=== PATIENT | female | born 1995 | race Caucasian/White ===

== ENCOUNTER 2016-09-24 03:04 | Inpatient (IN) ==
[2016-09-24] MEDS: LACTATED RINGERS 1,000 ML IV SCH ×2 (03:45→09:46)
[2016-09-24] MEDS ORDERED: BUTORPHANOL 1 MG/ML VIAL IV PRN (04:03)
[2016-09-24] MEDS ORDERED: ONDANSETRON 4 MG/2 ML VIAL IV PRN (04:03)
[2016-09-24] MEDS ORDERED: MEPERIDINE 50 MG/1 ML VIAL IV PRN (04:03)
[2016-09-24] MEDS ORDERED: BUTORPHANOL 2 MG/ML VIAL IV PRN (04:08)
[2016-09-24 04:30] LABS: Basophils # 0.1 10*3/uL (0.0-0.2); Basophils % 0.4 % (0.0-0.8); Eosinophils # 0.1 10*3/uL (0.0-0.87); Eosinophils % 0.4 % (0.00-10.9); Hematocrit 34.8 VOL% (35.7-47.0); Hemoglobin 11.8 GM/DL (12.0-16.0); Immature Granulocytes Absolute 0.32 #; Lymphocytes # 1.9 10*3/uL (1.4-4.0); Lymphocytes % 12.3 % (21.3-54.2); Mean Corpuscular HGB Conc 33.9 GM/DL (32-36); Mean Corpuscular Hemoglobin 32 PG (27-34); Mean Corpuscular Volume 94.8 FL (87-102); Mean Platelet Volume 11.7 FL (9.6-12.0); Monocytes # 0.9 10*3/uL (0.11-0.8); Monocytes % 5.7 % (1.7-12.7); Neutrophils # 12.4 10*3/uL (1.4-7.4); Neutrophils % 79.2 % (38.7-73.9); Platelet Count 130 T/CUMM (130-400); Red Blood Count 3.67 MC/CUMM (3.8-5.5); White Blood Count 15.7 T/CUMM (4-12)
[2016-09-24] MEDS: AMPICILLIN INJ 2,000 MG in SODIUM CHLORIDE 0.9% 100 ML IV SCH ×3 (04:32→18:16)
[2016-09-24 05:06] LABS: Alanine Aminotransferase 15 U/L (13-56); Alkaline Phosphatase 87 U/L (45-117); Aspartate Amino Transferase 11 U/L (0-37); Bilirubin,Total < 0.39 MG/DL (0.2-1.0); Blood Urea Nitrogen 8 MG/DL (7-18); Calcium 9.2 MG/DL (8.5-10.1); Glucose 100 MG/DL (74-106); Osmolality,Calculated 280.1 MOS/KG (273-304); Potassium 4.1 MMOL/L (3.5-5.1); Sodium 142 MMOL/L (136-145); Total Protein 6.4 G/DL (6.4-8.3)
[2016-09-24 05:38] LABS: Apearance,Urine CLEAR (Clear); Bilirubin,Urine Negative (Negative); Blood, Urine Negative (Negative); Glucose,Urine (UA) Negative (Negative); Ketones,Urine Negative (Negative); Nitrite,Urine Negative (Negative); Protein,Urine Negative; RBC,Urine <1 /HPF (0-4); Squamous Epithelial Cell,Urine Occasional /HPF (0-10); Urine Color Colorless (Yellow); Urine Specific Gravity 1.004 (1.001-1.035); Urine Urobilinogen < 2.0 EU/DL (0.2-1.0); WBC,Urine 1 /HPF (0-6)
[2016-09-24 05:43] LABS: Barbiturates Screen,Urine Negative (Negative); Benzodiazepines Screen,Urine Negative (Negative); Cannabinoid Screen,Urine Negative (Negative); Opiate Screen,Urine Negative (Negative); Phencyclidine Screen,Urine Negative (Negative)
--- NOTE | 2016-09-24 12:06 | OB/GYN History & Physical ---
History of Present Illness Chief complaint: contractions History of present illness: Ms. Armendariz is a 20 year old female at 34 weeks and 1 day by estimated due date of 11/04/2016 dated by a 10 week ultrasound who presents with contractions. The patient was here last week complaining of nausea vomiting and contractions and was noted to be 2 cm dilated so she was given steroids for lung maturity at that time. The patient was admitted early this morning and noted to be 3-4 cm and was hugh but her contractions have slowed down with pain medication. The baby has been looking good on the monitor. She denies rupture of membranes. Home Medications Medication Instructions Recorded Confirmed Type Vits #90/Iron Fum/FA 1 each PO BEDTIME 04/06/16 09/24/16 History [ Formula Tablet] Ferrous Sulfate, Dried [Iron] 1 tablet PO DAILY 08/26/16 09/24/16 History NIFEdipine CAP [Procardia] 10 mg PO Q8HR #30 capsule 09/18/16 09/24/16 Rx Allergies Allergy/AdvReac Type Severity Reaction Status Date / Time No Known Allergies Allergy Verified 08/26/16 15:32 Medical,Surgical,& Family Hx - Medical History Cardio: No history of: Hypertension Psychological: History of: ADHD Neurology: No history of: Seizures Endocrine: No history of: Diabetes Mellitus (IDDM), Diabetes Mellitus (NIDDM) Respiratory: History of: Asthma (CHILDHOOD) Renal: History of: Renal Problems Genitourinary: History of: Recurring Urinary Tract Infections Reproductive: History of: Ectopic No history of: Complication Other: History of: Anesthesia Reactions (nausea) - Surgical History Reproductive Surgeries: Surgical HX of;: Dilation and Curettage (08/01/2015), Gynecologic Surgery (ectopic ) Patient denies;: Section - Family History Family History: Reports;: Family Cancer (BROHTER), Family Diabetes (BROTHER), Family Hypertension (MOTHER FATHER BROTHER), Family Stroke (PATERNAL GRANDFATHER ) Denies;: Family Anesthesia Reaction, Family Heart Disease, Family Hematology , Family Psychiatric Problems, Additional Family History - Social History Smoking Status: Never smoker Frequency of Alcohol Use: None Type of Drug Use: None 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: every 1-3 mins - Respiratory Respiratory exam: Absent: accessory muscle use - Cardiovascular Cardiovascular exam: Present: regular rate and rhythm - GI/Abdominal GI/Abdominal exam: Present: guarding, tenderness, rebound, other (gravid) - Extremities Exam Extremities exam: Absent: calf tenderness - Neurological Exam Neurological exam: Present: alert, oriented X3 - Psychiatric Psychiatric exam: Present: normal affect - Skin Skin exam: Present: normal color Assessment and Plan (1) labor in third trimester without delivery Status: Acute Assessment and plan: IUP at 34 weeks 1 day with symptoms of early labor. Start Ampicillin for unknown GBS. IVFs and expectant management. continue Procardia. s/p FLM last week . No benefit from Magnesium sulfate . Current Visit: Yes Results - Labs CBC & BMP: 09/24/16 04:23 09/24/16 04:23
[2016-09-24] MEDS: NIFEdipine 10 MG CAPSULE PO SCH (18:16)
--- NOTE | 2016-09-24 18:35 | Ultrasound Report ---
History is labor A single fetus is present in vertex position Biophysical profile scores of 2/2 are given for breathing, movement, tone, and fluid volume A reactive NST was not performed Impression: Biophysical profile score of 8 PROCEDURE INTERPRETED AT [facility] DEPARTMENT OF RADIOLOGY Final Report Signed by: Dr. Kathryn Burgos
[2016-09-24] MEDS ORDERED: ZALEPLON 5 MG CAPSULE ONE (22:05)
[2016-09-24] MEDS ORDERED: ZALEPLON 5 MG CAPSULE PO PRN (22:10)
[2016-09-25] MEDS: NIFEdipine 10 MG CAPSULE PO SCH ×3 (00:05→12:02)
[2016-09-25] MEDS: AMPICILLIN INJ 2,000 MG in SODIUM CHLORIDE 0.9% 100 ML IV SCH ×3 (00:06→12:03)
[2016-09-25 00:13] VITALS: BP 105/55
--- NOTE | 2016-09-25 09:13 | OB/GYN Progress Note ---
Assessment and Plan (1) labor in third trimester without delivery Status: Acute Assessment and plan: IUP at 34 weeks 2 day with symptoms of early labor. continue Procardia. s/p FLM last week . The pt will ambulate this morning and I will do a pelvic exam at lunch time today Current Visit: Yes MEDICAL LAB DIRECTOR - PN: Subj Interval history: The pt says her contractions are less intense and less frequent. She denies bleeding. The baby is moving well. Exam MEDICAL LAB DIRECTOR - Constitutional Vitals: Vital Signs Temp Pulse Resp BP Pulse Ox 09/25/16 00:00 97.1 F L 87 18 105/55 09/24/16 20:00 97.6 F 83 18 100/56 09/24/16 15:47 97.3 F L 80 18 107/63 09/24/16 12:00 97.8 F 91 H 20 144/61 98 General appearance: normal weight, no acute distress - Respiratory Respiratory exam: Absent: accessory muscle use - Cardiovascular Cardiovascular exam: Present: regular rate and rhythm - GI/Abdominal GI/Abdominal exam: Absent: guarding, tenderness, rebound - Extremities Exam Extremities exam: Absent: calf tenderness - Neurological Exam Neurological exam: Present: alert, oriented X3 - Psychiatric Psychiatric exam: Present: normal affect, normal mood - Skin Skin exam: Present: normal color, warm Results - Labs CBC & BMP: 09/24/16 04:23 09/24/16 04:23 - Diagnostic Findings Procedure: Uterus-Nonstress Test: other (cat 1 , no ctxns noted, irritablity)
--- NOTE | 2016-09-25 13:35 | Event Note ---
pelvic exam: /-2 basically unchanged NST without contractions
--- NOTE | 2016-09-25 13:45 | Discharge Summary ---
Hospital Course - Hospital Course Hospital Course: This is a 20 y/o at 34 weeks 2 days who was admitted for contractions. She has been stable the entire time and has responded well to procardia. She had FLM a week ago. She feels better and denies contractions at this time. Diagnosis - Discharge Diagnosis (1) labor in third trimester without delivery Status: Acute Specialty Discharge - Follow Up or Referrals Follow up with: Mckenzie Rodriguez MD [Primary Care Provider] - 1 Week Discharge Plan - Discharge Data Disposition: Disch To Home/Self Care - Discharge Medications No Action Vits #90/Iron Fum/FA [ Formula Tablet] 1 each PO BEDTIME Ferrous Sulfate, Dried [Iron] 1 tablet PO DAILY NIFEdipine CAP [Procardia] 10 mg PO Q8HR #30 capsule - Follow Up or Referral - Forms/Instructions Additional Discharge Instructions: procardia every 4-6 hours, rest as much as possible Exam - Constitutional Vitals: Period Temp Pulse Resp BP Sys/Elliott Pulse Ox Last 24 Hr 97.1 F-97.6 F 80-87 18-18 100-107/55-63 DS: Provider Date of admission: 09/24/16 03:04 Primary care physician: Mckenzie Daniel- Attending physician on admission: Mckenzie Daniel- Consults: 09/24/16 04:03 Consult to Anesthesiology [CONS] Routine Consulting Provider: Reason for Anesthesiology: Epidural Consult Comment: Epidural for pain managment Discharging clinician: Mckenzie Daniel- Expected date of discharge: 09/25/16
== END 2016-09-25 14:55 | disposition home or self-care (01) | DRG 778 ==
LOC: N.LD 03:04
PROVIDERS: ADMIT Obstetrics & Gynecology; ATTEND Obstetrics & Gynecology

== ENCOUNTER 2016-10-11 04:25 | Observation (INO) ==
[2016-10-11 05:11] LABS: Apearance,Urine CLEAR (Clear); Bacteria,Urine Occasional /HPF (Few); Bilirubin,Urine Negative (Negative); Blood, Urine Negative (Negative); Glucose,Urine (UA) Negative (Negative); Ketones,Urine Negative (Negative); Mucus,Urine Occasional /LPF (Occasional); Nitrite,Urine Negative (Negative); Protein,Urine Negative; RBC,Urine 1 /HPF (0-4); Squamous Epithelial Cell,Urine Occasional /HPF (0-10); Urine Color Light Yellow (Yellow); Urine Specific Gravity 1.002 (1.001-1.035); Urine Urobilinogen < 2.0 EU/DL (0.2-1.0); WBC,Urine 1 /HPF (0-6)
[2016-10-11] MEDS ORDERED: ONDANSETRON 4 MG/2 ML VIAL IV PRN (07:31)
[2016-10-11] MEDS ORDERED: OXYTOCIN/LR 20 UNIT/1,000 ML BAG IV SCH (08:00)
[2016-10-11] MEDS ORDERED: LACTATED RINGERS 1,000 ML IV SCH (08:00)
[2016-10-11 08:14] LABS: Basophils % 0.3 % (0.0-0.8); Eosinophils # 0.1 10*3/uL (0.0-0.87); Eosinophils % 0.4 % (0.00-10.9); Hematocrit 37.2 VOL% (35.7-47.0); Hemoglobin 12.4 GM/DL (12.0-16.0); Immature Granulocytes % 0.8 %; Lymphocytes # 1.7 10*3/uL (1.4-4.0); Lymphocytes % 14.6 % (21.3-54.2); Mean Corpuscular HGB Conc 33.3 GM/DL (32-36); Mean Corpuscular Hemoglobin 32 PG (27-34); Mean Corpuscular Volume 94.4 FL (87-102); Mean Platelet Volume 12.5 FL (9.6-12.0); Monocytes # 0.8 10*3/uL (0.11-0.8); Monocytes % 6.5 % (1.7-12.7); Neutrophils # 9.1 10*3/uL (1.4-7.4); Neutrophils % 77.4 % (38.7-73.9); Platelet Count 123 T/CUMM (130-400); Red Blood Count 3.94 MC/CUMM (3.8-5.5); Red Cell Distribution Width 13.8 % (9.3-17.3); White Blood Count 11.8 T/CUMM (4-12)
[2016-10-11 08:43] LABS: Alanine Aminotransferase 19 U/L (13-56); Albumin 3.2 G/DL (3.4-5.0); Alkaline Phosphatase 122 U/L (45-117); Aspartate Amino Transferase 21 U/L (0-37); Bilirubin,Total < 0.39 MG/DL (0.2-1.0); Blood Urea Nitrogen 6 MG/DL (7-18); Calcium 8.6 MG/DL (8.5-10.1); Glucose 77 MG/DL (74-106); Osmolality,Calculated 277.3 MOS/KG (273-304); Potassium 3.5 MMOL/L (3.5-5.1); Sodium 141 MMOL/L (136-145); Total Protein 6.8 G/DL (6.4-8.3)
--- NOTE | 2016-10-11 12:49 | OB/GYN Progress Note ---
Assessment and Plan - Time spent with patient Time spent with patient: Less than 30 minutes (1) labor in third trimester without delivery Status: Acute Assessment and plan: The pt is 36 weeks 4 weeks in early labor. The pt has walked all morning and has had little cervical change. The NST and BPP/LION are within normal limits. 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 The pt has been feeling the baby well. Of note her pelvic exam has been 3-4 cm/80/-2 for several weeks. The pt has always had reassuring FHTs. Exam TRADER - Constitutional Vitals: Vital Signs Temp Pulse Resp BP Pulse Ox 10/11/16 04:35 97.4 F L 80 20 111/70 100 General appearance: no acute distress - Antepartum / Post Antepartum Exam Cervix -Dilatation: 3-4 Effacement: 80 Station: -2 Rupture: intact Presentation: vertex Heart Rate: reassuring cat 1 [place]: irregular - Respiratory Respiratory exam: Absent: accessory muscle use - Cardiovascular Cardiovascular exam: Present: regular rate and rhythm - Extremities Exam Extremities exam: Absent: calf tenderness Results - Labs CBC & BMP: 10/11/16 08:07 10/11/16 08:07 - Diagnostic Findings Procedure: Uterus-Nonstress Test: other (cat 1, irregular contractions)
--- NOTE | 2016-10-11 13:10 | Ultrasound Report ---
Biophysical profile Clinical history: labor, check LION Comparison: 09/27/2016 Technique: Multiple transabdominal real-time scans were obtained. Limited color flow scans were obtained. Ultrasound images were captured and stored. Findings: +2 is given for breathing, gross body movements, tone and qualitative amniotic fluid volume. The reactive NST was not performed. There is a single intrauterine fetus in the cephalic presentation with a heart rate 131 BPM. The anterior placenta is not low lying in position with LION 98 mm. Impression: Biophysical profile score of 8. Normal infant, low risk for chronic asphyxia Ultrasound images were captured and stored. PROCEDURE INTERPRETED AT [facility] DEPARTMENT OF RADIOLOGY Final Report Signed by: Dr. Ivon Cramer
[2016-10-11 15:37] VITALS: BP 111/61
== END 2016-10-11 15:05 | disposition home or self-care (01) ==
LOC: N.LDOUT 04:25 → N.LD 04:26 → INTOOBSV 07:31 → N.LD 07:31
PROVIDERS: ADMIT Obstetrics & Gynecology; ATTEND Obstetrics & Gynecology

== ENCOUNTER 2018-09-04 14:39 | Inpatient (IN) ==
[2018-09-04] MEDS: LACTATED RINGERS 1,000 ML IV SCH (15:15)
[2018-09-04] MEDS: BETAMETH SODIUM PHOS/ACETATE 30 MG/5 ML VIAL IM SCH (15:20)
[2018-09-04] MEDS ORDERED: ONDANSETRON 4 MG/2 ML VIAL IV PRN (15:31)
[2018-09-04] MEDS ORDERED: TERBUTALINE 1 MG/1 ML VIAL SUBCUT ONE ×2 (15:50→15:51)
[2018-09-04 15:55] LABS: Basophils % 0.3 % (0.0-0.8); Eosinophils # 0.1 10*3/uL (0.0-0.87); Eosinophils % 0.5 % (0.00-10.9); Hematocrit 26.8 VOL% (35.7-47.0); Hemoglobin 8.4 GM/DL (12.0-16.0); Immature Granulocytes % 0.8 %; Immature Granulocytes Absolute 0.08 #; Lymphocytes # 2.3 10*3/uL (1.4-4.0); Lymphocytes % 23.9 % (21.3-54.2); Mean Corpuscular HGB Conc 31.3 GM/DL (32-36); Mean Corpuscular Hemoglobin 30 PG (27-34); Mean Platelet Volume 11.6 FL (9.6-12.0); Monocytes # 0.6 10*3/uL (0.11-0.8); Monocytes % 6.4 % (1.7-12.7); Neutrophils # 6.7 10*3/uL (1.4-7.4); Neutrophils % 68.1 % (38.7-73.9); Platelet Count 128 T/CUMM (130-400); Red Blood Count 2.85 MC/CUMM (3.8-5.5); Red Cell Distribution Width 13.2 % (9.3-17.3); White Blood Count 9.8 T/CUMM (4-12)
[2018-09-04 16:31] LABS: Alanine Aminotransferase 16 U/L (13-56); Albumin 2.7 G/DL (3.4-5.0); Alkaline Phosphatase 94 U/L (45-117); Aspartate Amino Transferase 18 U/L (0-37); Bilirubin,Total < 0.39 MG/DL (0.2-1.0); Blood Urea Nitrogen 4 MG/DL (7-18); Calcium 8.5 MG/DL (8.5-10.1); Glucose 68 MG/DL (74-106); Osmolality,Calculated 269.7 MOS/KG (273-304); Potassium 3.8 MMOL/L (3.5-5.1); Sodium 138 MMOL/L (136-145); Total Protein 7.2 G/DL (6.4-8.3); Uric Acid 2.3 MG/DL (2.6-6.0)
[2018-09-04] MEDS ORDERED: MAGNESIUM SULF RIDER 100 ML IV ONE (17:14)
[2018-09-04] MEDS ORDERED: MAGNESIUM SULF DRIP 40 GM/1,000 ML ML IV SCH (17:30)
[2018-09-04 22:46] LABS: Apearance,Urine CLEAR (Clear); Bilirubin,Urine Negative (Negative); Blood, Urine Negative (Negative); Glucose,Urine (UA) Negative (Negative); Ketones,Urine 80 mg/dL (Negative); Mucus,Urine Occasional /LPF (Occasional); Nitrite,Urine Negative (Negative); Protein,Urine Negative; RBC,Urine <1 /HPF (0-4); Urine Color Straw (Yellow); Urine Specific Gravity 1.011 (1.001-1.035); Urine Urobilinogen < 2.0 EU/DL (0.2-1.0); WBC,Urine <1 /HPF (0-6)
[2018-09-05] MEDS: LACTATED RINGERS 1,000 ML IV SCH (00:14)
[2018-09-05] MEDS: BETAMETH SODIUM PHOS/ACETATE 30 MG/5 ML VIAL IM SCH (05:30)
[2018-09-05] MEDS ORDERED: FAMOTIDINE 20 MG/2 ML VIAL IV ONE (08:23)
[2018-09-05] MEDS ORDERED: ceFAZolin 2,000 MG in PREMIX 1 EACH IV ONE (08:23)
[2018-09-05] MEDS ORDERED: CITRIC ACID/SODIUM CITRATE 30 ML UDCUP PO ONE (08:23)
[2018-09-05] MEDS ORDERED: LACTATED RINGERS 1,000 ML IV SCH ×2 (08:30→11:00)
[2018-09-05] MEDS ORDERED: OXYTOCIN 10 UNIT/ML VIAL IM ONE (08:38)
[2018-09-05] MEDS ORDERED: OXYTOCIN/LR 30 UNIT/1,000 ML BAG IV ONE (08:38)
[2018-09-05 10:25] LABS: Cord Arterial Blood HCO3 21.6 MMOL/L
[2018-09-05 10:26] LABS: Cord Arterial Blood HCO3 23.6 MMOL/L
[2018-09-05 10:28] LABS: Cord Venous Blood HCO3 21.9 MMOL/L; Cord Venous Blood PCO2 36.1 MMHG; Cord Venous Blood PO2 40.1 MMHG
[2018-09-05 10:29] LABS: Cord Venous Blood HCO3 22.7 MMOL/L; Cord Venous Blood PCO2 34.1 MMHG; Cord Venous Blood PO2 49.5
[2018-09-05] MEDS ORDERED: fentaNYL 100 MCG/2 ML VIAL ONE (10:30)
[2018-09-05] MEDS ORDERED: PHENYLEPHRINE 1 MG/10 ML SYRINGE IV ONE (10:30)
[2018-09-05] MEDS ORDERED: MORPHINE 10 MG/10 ML VIAL ONE (10:31)
[2018-09-05] MEDS ORDERED: ePHEDrine 50 MG/ML AMP ONE (10:31)
[2018-09-05] MEDS ORDERED: BUPIVACAINE SPINAL 0.75% 2 ML AMP SPINAL ONE (10:32)
[2018-09-05] MEDS ORDERED: RHO(D) IMMUNE GLOBULIN 300 MCG SYRINGE IM ONE (10:41)
[2018-09-05] MEDS ORDERED: OXYTOCIN/LR 20 UNIT/1,000 ML BAG IV ONE (10:41)
[2018-09-05] MEDS ORDERED: ONDANSETRON 4 MG/2 ML VIAL IV PRN (10:41)
[2018-09-05] MEDS ORDERED: ACETAMINOPHEN 325 MG TABLET PO PRN (10:41)
[2018-09-05] MEDS ORDERED: SODIUM CHLORIDE 0.9% 1,000 ML IV PRN (10:44)
[2018-09-05] MEDS: ceFAZolin 1,000 MG in SYRINGE 1 EACH IV SCH (17:59)
[2018-09-05 18:29] LABS: Basophils % 0.2 % (0.0-0.8); Hematocrit 31.3 VOL% (35.7-47.0); Hemoglobin 10.2 GM/DL (12.0-16.0); Immature Granulocytes % 1.1 %; Immature Granulocytes Absolute 0.21 #; Lymphocytes # 1.7 10*3/uL (1.4-4.0); Lymphocytes % 9.1 % (21.3-54.2); Mean Corpuscular HGB Conc 32.6 GM/DL (32-36); Mean Corpuscular Hemoglobin 29 PG (27-34); Mean Corpuscular Volume 89.9 FL (87-102); Monocytes # 0.6 10*3/uL (0.11-0.8); Monocytes % 3.3 % (1.7-12.7); Neutrophils # 16.4 10*3/uL (1.4-7.4); Neutrophils % 86.3 % (38.7-73.9); Platelet Count 126 T/CUMM (130-400); Red Blood Count 3.48 MC/CUMM (3.8-5.5); Red Cell Distribution Width 14.1 % (9.3-17.3); White Blood Count 18.9 T/CUMM (4-12)
[2018-09-05] MEDS ORDERED: diphenhydrAMINE CAP 25 MG CAPSULE PO PRN (20:42)
[2018-09-05] MEDS: DOCUSATE SODIUM 100 MG CAPSULE PO SCH (22:22)
[2018-09-06] MEDS: SIMETHICONE CHEW 80 MG TABLET PO PRN ×3 (01:10→20:18)
[2018-09-06] MEDS: ceFAZolin 1,000 MG in SYRINGE 1 EACH IV SCH (01:59)
[2018-09-06] MEDS: IBUPROFEN 800 MG TABLET PO PRN ×3 (02:31→20:18)
[2018-09-06] MEDS: MAGNESIUM HYDROXIDE SUSP 30 ML UDCUP PO PRN ×2 (08:37→20:18)
[2018-09-06] MEDS: MULTIVITAMIN (PRENATAL) TABLET PO SCH (08:37)
[2018-09-06] MEDS: DOCUSATE SODIUM 100 MG CAPSULE PO SCH ×2 (08:37→20:17)
[2018-09-07] MEDS ORDERED: METOCLOPRAMIDE 10 MG TABLET PO SCH (06:30)
[2018-09-07 07:10] VITALS: BP 93/52
[2018-09-07] MEDS: MULTIVITAMIN (PRENATAL) TABLET PO SCH (08:39)
[2018-09-07] MEDS: DOCUSATE SODIUM 100 MG CAPSULE PO SCH (08:39)
[2018-09-07] MEDS: MAGNESIUM HYDROXIDE SUSP 30 ML UDCUP PO PRN (08:39)
[2018-09-07] MEDS: SIMETHICONE CHEW 80 MG TABLET PO PRN (08:41)
== END 2018-09-07 11:00 | disposition home or self-care (01) | DRG 788 ==
LOC: N.LDOUT 14:39 → N.LD 14:40 → N.OB 09-05 14:02
PROVIDERS: ADMIT Obstetrics & Gynecology; ATTEND Obstetrics & Gynecology
PROC: LDCSECT (ICD-10-PCS; 2018-09-05 09:30)